=== PATIENT | female | born 1980 | race Two or more races ===

== ENCOUNTER 2017-03-08 17:11 | Emergency (ER) | payer OTHER ==
--- NOTE | ~2017-03-08 | US134 ---
[facility] A Service of [facility] & [facility] RADIOLOGY TEXT RESULTS PATIENT: YADI QUISPE LOCATION: [facility] : 84 UNIT #: [id number] AGE: [address]: Rai Gustafson MD SEX: F ORDER DR: [id number] [facility] [address] [place], [place] [address] [id number] E MR#: [id number] Acc #: [id number] NAME: YADI QUISPE : 1980 SEX: F STUDY DATE/TIME: 03/08/2017 20:46 UNIT: [facility] ROOM: STUDY DESCRIPTION: Transvaginal Attending Physician: Rai Gustafson M.D. Ordering Physician: Rai Gustafson M.D. Primary Care Physician: [facility] MEDICAL IMAGING REPORT This report is preliminary unless electronic signature is present REVISED REPORT SEE ADDENDUM EXAM Pelvic ultrasound, transvaginal technique and transabdominal technique, 03/08/17 INDICATIONS Abdominal pain 2 days. Unsure of last menstrual period. No beta HCG available at time of study interpretation. TECHNIQUE Sonographic imaging of the pelvis was performed transabdominally and then transvaginally for better evaluation of the adnexa and ovarian structures. No relevant comparisons. FINDINGS TRANSABDOMINAL IMAGING: The uterus is only seen to a limited extent transabdominally. Neither ovary is seen transabdominally. TRANSVAGINAL IMAGES: The uterus is retroverted and measures 8.6 x 5.0 x 5.4 cm. Endometrial stripe was measured at 1.6 cm by the technologist at the fundus, but this appears artifactually increased by technologist measurements and is probably more within the range of about 10-12 mm. Small amount of fluid associated with the endometrial stripe near the cervix. There is complicated free fluid in the pelvis. This is nonspecific. It could represent recent rupture of a cyst. Neither ovary is well visualized or assessed. The technologist has placed calipers upon what is labeled the right ovary that measures up to 3.8 cm. What is labeled the left ovary measures up to 3.9 cm. What are labeled as the ovaries [facility] A Service of [facility] RADIOLOGY TEXT RESULTS PATIENT: YADI QUISPE LOCATION: [facility] : 84 UNIT #: [id number] AGE: [address]: Rai Gustafson MD SEX: F ORDER DR: demonstrate flow at the time of the study. IMPRESSION 1. Retroverted uterus. The endometrial stripe is likely within normal limits for thickness. No focal uterine mass. 2. There is free fluid in the pelvis that appears to be slightly complicated in nature; this is nonspecific but may reflect recent rupture of a cyst, such as a hemorrhagic or a proteinaceous cyst. 3. The ovaries are not well visualized or assessed. What are labeled the right and left ovaries demonstrate good flow at the time of the study. Dictated by... Neal العراقي M.D. THIS IS AN ELECTRONICALLY VERIFIED REPORT Neal العراقي M.D. at 03/09/2017 3:16 PM PO/axel TD: 03/08/2017 23:20 JOB #: [id number] ADDENDUM REPORT ADDENDUM I have received a phone call from the ER physician. Additional history has now been provided by the ER physician. The additional history is that the beta HCG for this patient is approximately 7000. The ER is requesting assessment for the presence or absence of an IUP. In the setting of a positive beta HCG, and the lack of a visualized intrauterine on ultrasound, differential considerations are broad. An ectopic is not excluded on the basis of this study. Additional differential considerations would include recent blighted ovum or miscarriage. Possibility of an early IUP that is too early for visualization with ultrasound is felt to be less likely given the reported beta HCG of 7000. Given that an ectopic is not excluded on the basis of this study, a short-term followup ultrasound, repeat beta HCG levels, and [employer] referral are recommended to exclude the possibility of an ectopic in this patient. Differential considerations were discussed by telephone with Dr. Gustafson at the time of this addendum. Dictated by... Neal العراقي M.D. [facility] A Service of [facility] & [facility] RADIOLOGY TEXT RESULTS PATIENT: [facility]ADI QUISPE [id number] 84 UNIT #: [id number] AGE: [address]: Rai Gustafson MD SEX: F ORDER DR: THIS IS AN ELECTRONICALLY VERIFIED REPORT Neal العراقي M.D. at 03/10/2017 2:37 PM Teresa TD: 03/08/2017 21:47 JOB #: [id number] CC: [email or web address]/deepa Please Delete MEDICAL IMAGING REPORT Page 1 of 1 COPY
[2017-03-08 18:02] LABS: URINE SOURCE CLEAN CATCH
[2017-03-08 18:06] LABS: URINE APPEARANCE CLEAR; URINE BILIRUBIN NEG (NEG); URINE BLOOD NEG (NEG); URINE COLOR YELLOW; URINE GLUCOSE NEG (NEG); URINE KETONE NEG (NEG); URINE LEUKOCYTE ESTERASE 2+ (NEG); URINE NITRATE NEG (NEG); URINE PROTEIN NEG (NEG); URINE SPECIFIC GRAVITY 1.012 (1.003-1.035); URINE UROBILINOGEN 0.2 MG/DL (NEG)
[2017-03-08 18:08] LABS: CULTURE INDICATED? YES; U HYALINE CASTS AUWI 0-2 /[LPF]; URBCS1 AUWI 0-2 /[HPF] (0-2); URINE BACTERIA AUWI NEG (NEGATIVE); URINE SQUAMOUS EPITHELIAL CELL OCC /[HPF]
[2017-03-08 18:08] LABS: BASOPHIL% 0.5 % (0-2.5); EOSINOPHIL% 0.5 % (0.0-7.0); HEMATOCRIT 38.8 % (35.0-45.0); HEMOGLOBIN 12.6 gm/dL (12.0-16.0); LYMPHOCYTE# 2.2 X10e3 (1.0-3.5); LYMPHOCYTE% 35.8 % (17.0-45.0); MEAN CELL VOLUME 85.6 FL (83-96); MEAN CORPUSCULAR HEMOGLOBIN 27.7 PG (28-34); MEAN CORPUSCULAR HGB CONC 32.4 g/dL (30-36); MEAN PLATELET VOLUME 10.4 FL (6.5-11.5); MONOCYTE# 0.4 X10e3 (0-1.0); MONOCYTE% 6.4 % (3.0-12.0); NEUTROPHIL# 3.4 X10e3 (1.5-7.1); NEUTROPHIL% 56.8 % (40-75); PLATELET COUNT 161 X10e3 (140-420); RED BLOOD COUNT 4.54 X10e (3.90-5.30)
[2017-03-08 18:09] LABS: DIFF IND NO
[2017-03-08 18:32] LABS: ALBUMIN SERUM 4.8 g/dL (3.5-5.0); ALKALINE PHOSPHATASE 55 U/L (32-92); ALT (SGPT) 10 U/L (10-40); AST (SGOT) 20 U/L (10-42); BILIRUBIN,TOTAL 0.8 mg/dL (0.2-2.0); BLOOD UREA NITROGEN 8 mg/dL (9-23); BUN/CREATININE RATIO 11.42; CALCIUM SERUM 9.1 mg/dL (8.4-10.2); CARBON DIOXIDE 26 mmol/L (22-31); CHLORIDE 104 mmol/L (100-111); CREATININE SERUM 0.7 mg/dL (0.6-1.4); GLUCOSE FASTING 92 mg/dL (70-110); LIPASE 23 U/L (22-51); POTASSIUM 3.7 mmol/L (3.5-5.1); PROTEIN TOTAL SERUM 7.5 g/dL (6.0-8.3); SODIUM 135 mmol/L (135-145)
[2017-03-08 18:34] LABS: BILIRUBIN, DIRECT <0.1 mg/dL (0.0-0.2); BILIRUBIN,INDIRECT 0.7 mg/dL (0.0-0.9)
[2017-03-11 23:16] LABS: CHLAMYDIA TRACH Not Detected (Not Detected); N GONOR Not Detected (Not Detected)
== END 2017-03-08 22:41 | disposition hospice, home (50) ==
LOC: CED 17:11
PROVIDERS: Emergency Medicine
DX: N39.0 Urinary tract infection, site not specified (principal)
CPT/HCPCS: 36415; 76830; 80048; 80076; 81003; 83690; 84702; 84703; 85025; 86900; 86901; 87086; 87491; 87591; 87808; 87905; 96361; 96365; 99285; J0696